=== PATIENT | female | born 1960 | race Caucasian/White ===

== ENCOUNTER → 2024-01-10 11:07 | Outpatient (REF) | payer OTHER, SELFPAY | LOC: WDC 11:07 | PROVIDERS: ATTENDING PHYSICIAN Obstetrics & Gynecology; FAMILY PHYSICIAN Internal Medicine | DX: Z12.31 Encounter for screening mammogram for malignant neoplasm of breast (principal) | CPT/HCPCS: 77063; 77067 ==

== ENCOUNTER 2024-07-25 06:23 | Day surgery (SDC) | payer OTHER, SELFPAY ==
[2024-07-14 13:25] VITALS: BMI 28.5
[2024-07-25] VITALS (9 sets, daily range): BP systolic 104–147; BP diastolic 59–78; BMI 28.5
[2024-07-25] MEDS: Pyridium 200 MG PO (09:22)
[2024-07-25] MEDS: EMEND 40 MG PO (09:22)
[2024-07-25] MEDS: HEPARIN 5000 UNITS SC (09:22)
[2024-07-25] MEDS: NORMOSOL-R/PLASMALYTE-A 1000 IV (09:22)
== END 2024-07-25 16:49 | disposition home or self-care (01) ==
LOC: SDS 06:23
PROVIDERS: ATTENDING PHYSICIAN Obstetrics & Gynecology; FAMILY PHYSICIAN Internal Medicine
DX: N99.3 Prolapse of vaginal vault after hysterectomy (principal); N39.3 Stress incontinence (female) (male); Y83.8 Other surgical procedures as the cause of abnormal reaction of the patient, or of later complication, without mention of misadventure at the time of the procedure; K66.0 Peritoneal adhesions (postprocedural) (postinfection); N36.41 Hypermobility of urethra
CPT/HCPCS: 57425; 57250; 57288; 36415; 86850; 86900; 86901; 93005; C1713; C1763; C1771

== ENCOUNTER 2024-08-04 12:17 | Emergency (ER) | payer OTHER, SELFPAY ==
[2024-08-04 12:20] VITALS: BP 152/95
--- NOTE | 2024-08-04 13:11 | ED.GENMED ---
History of Present Illness
General
Chief Complaint: Skin Surface Trauma
Source: patient
Exam Limitations: none
Time Seen by Provider: 08/04/24 12:35
Nursing documentation reviewed up to this point in time: agreed with
History of Present Illness
History of Present Illness:
63-year-old female presents with tripping and falling onto her face and hitting her lower lip. She was able control the bleeding. She also complains of left wrist pain. Last tetanus shot was 3 years ago.
Past History
Past History
ED Past Medical History: HTN and Other (ITP at age 14)
ED Past Surgical History: Other (splenectomy)
Social History
Tobacco: Non-smoker
Alcohol: Occasional
Drug: None
Personal:
Living: with family
Review of Systems
Review of Systems
Allergies reviewed?: Yes
All Other Systems: Not applicable
Constitutional: Reports no symptoms
EENT: Reports other (lower lip laceration)
Respiratory: Reports no symptoms
Cardiac: Reports no symptoms
ABD/GI: Reports no symptoms
: Reports no symptoms
Musculoskeletal: Reports no symptoms
Skin: Reports no symptoms
Neurological: Reports no symptoms
Endocrine: Reports no symptoms
Hematologic/Lymphatic: Reports no symptoms
Phy Exam
Physical Exam
Physical Exam:
Physical Exam
General: no apparent distress, not acutely ill
Neck: supple. no meningeal signs. normal posterior pharynx
Heart: s1/s2 regular rate and rhythm, no murmur. equal radial
pulses.
HEENT: Pupils equal round reactive to light, EOMI, superficial lip laceration, does not violate vermilion border.
Lungs: no acute respiratory distress. clear bilaterally
Abdomen: normal bowel sounds. not tender. no CVAT
Neuro: alert and oriented. no focal neurological deficits cranial nerves II through XII intact
Skin: no rash
Psychiatric: well kept. interactive and cooperative
Extremities: no edema. no calf tenderness. negative homans. good distal pulses, , Left-sided snuffbox tenderness
Course
Orders/Labs/Results
Orders:
Orders
08/04/24 13:09
Wrist, Left 3 Views CR [CR Wrist - Left Min 3 Views] Urgent
Comment:
Reason For Exam: fall, snuffbox tenderness
08/04/24 13:10
Thumb Spica Left-Treatment ONCE
Vital Signs
Initial and Last Documented VS:
Initial Vital Signs
Temp Pulse Resp BP Pulse Ox
97.6 F 74 15 152/95 98
08/04/24 12:20 08/04/24 12:20 08/04/24 12:20 08/04/24 12:20 08/04/24 12:20
Last Documented Vital Signs
Temp Pulse Resp BP Pulse Ox
97.6 F 74 15 152/95 98
08/04/24 12:20 08/04/24 12:20 08/04/24 12:20 08/04/24 12:20 08/04/24 12:20
Procedures
Splint Check
Splint checked by provider?: Yes
Circulation/Movement/Sensation post splint application: brisk cap refill and full ROM
MDM/Problems Addressed
Differential Diagnosis Includes:
Styloid process fracture, scaphoid fracture, lip laceration
MDM/Problems Addressed:
63-year-old female with nondisplaced ulnar styloid fracture, possible scaphoid fracture. Splint applied. Patient follow-up with orthopedics.
*Radiology
Radiology exam reviewed: preliminary read by ED provider (X x-ray shows small 2.8 mm nondisplaced ulnar styloid fracture, possible scaphoid fracture nondisplaced)
*Pulse Oximetry
Patient hypoxic: no
*Critical Care Note
Total Time (30-74mins, 75-104mins- exclusive of procedures): Not Applicable
ED Attending Note
-
Portions of this chart may have been created with voice recognition software.� Occasional wrong word or��sound alike� substitutions may have occurred due to the inherent limitations of voice recognition software.
Discharge Plan
Departure
Patient Disposition: Home (Routine Discharge)
Date of Disposition: 08/04/24
Time of Disposition: 13:39
Patient with high blood pressure during this ER visit?: Yes
Condition: Good
Discharge Problem:
Closed fracture of scaphoid of left wrist, Laceration of lip, Fall, Nondisplaced fracture of styloid process of left ulna
Instructions: Common Wrist Injuries ED, BLOOD PRESSURE
Prescriptions:
No Action
diclofenac sodium 75 mg Tablet,Delayed Release (Dr/Ec)
75 mg PO BID
benazepril 20 mg Tablet
20 mg PO DAILY
levocetirizine [Xyzal] 5 mg Tablet
10 mg PO DAILY PRN (Reason: allergy symptoms)
atorvastatin 10 mg Tablet
10 mg PO DAILY
acetaminophen [Tylenol Extra Strength] 500 mg Tablet
1,000 mg PO Q6H PRN (Reason: pain)
omeprazole [Prilosec] 20 mg Capsule,Delayed Release(Dr/Ec)
20 mg PO .EVERY OTHER DAY
cholecalciferol (vitamin D3) [Vitamin D3] 50 mcg (2,000 unit) Tablet
50 mcg PO DAILY
Referrals:
Harrison Valdes MD [Active] - Call in 1-3 days for appt
Johana Mcfarlane MD [Family Provider] -
Interventions
Interventions:
*Risk Screen - Suicide Last Done: 08/04/24 12:20
*General Assessment Last Done: 08/04/24 12:20
*Neglect/Abuse Screening Last Done: 08/04/24 13:02
*ED- Fall Risk Assessment Last Done: 08/04/24 12:20
ED-Skin Assessment Last Done: 08/04/24 13:02
Discharge Date and Time
Print Language: [id number]
== END 2024-08-04 14:51 | disposition home or self-care (01) ==
LOC: EMR 12:17
PROVIDERS: EMERGENCY PHYSICIAN Emergency Medicine; FAMILY PHYSICIAN Internal Medicine
DX: S62.002A Unspecified fracture of navicular [scaphoid] bone of left wrist, initial encounter for closed fracture (principal); S52.615A Nondisplaced fracture of left ulna styloid process, initial encounter for closed fracture; S01.511A Laceration without foreign body of lip, initial encounter; W01.0XXA Fall on same level from slipping, tripping and stumbling without subsequent striking against object, initial encounter; I10 Essential (primary) hypertension
CPT/HCPCS: 29125; 99283; 73110

== ENCOUNTER → 2025-01-15 10:47 | Outpatient (REF) | payer OTHER, SELFPAY | LOC: WDC 10:47 | PROVIDERS: ATTENDING PHYSICIAN Obstetrics & Gynecology; FAMILY PHYSICIAN Internal Medicine | DX: Z12.31 Encounter for screening mammogram for malignant neoplasm of breast (principal) | CPT/HCPCS: 77063; 77067 ==